=== PATIENT | female | born 1995 | race African-American/Black ===

== ENCOUNTER 2017-07-18 11:01 | Emergency (ER) | payer SELFPAY ==
[~2017-07-18] VITALS: Ht 167.6 cm; Wt 68.0 kg
[~2017-07-18 11:01] MED LIST: DICL75 PO
[2017-07-18 11:07] VITALS: BP 110/59; TEMP 98.5; O2SAT 100
--- NOTE | 2017-07-18 12:09 | PD ---
HPI Chief Complaint: Related Problem Time Seen by Provider: 11:57 Travel History International Travel<30 days: No Contact w/Intl Traveler<30days: No Traveled to known affect area: No History of Present Illness HPI The patient is a 21-year-old [place] female who presents to the emergency department for possible . The patient denies previous , states her last menstrual cycle ended on June 26, 2017. The patient had a home test that was positive, presents emergency department for evaluation of possible . She does complain of some lower abdominal cramping intermittently for the last week, but denies any acute pain upon arrival. She denies any vaginal discharge or vaginal bleeding. She denies any dysuria, frequency, or urgency. She does complain of mild intermittent nausea without any vomiting. Symptoms are mild, possibly secondary to . She is sexually active. She is not currently on control. PFSH Past Medical History Developmental Delay: No Diminished Hearing: No Immunizations Current: Yes ?: LMP: UNKNOWN Menopausal: No : 0 Para: 0 Miscarriage: 0 : 0 Past Surgical History Abdominal Surgery: Yes (HERNIA REPAIR) Other Surgery: Yes (HERNIA) Social History Alcohol Use: No Tobacco Use: No Substance Use: No Allergies-Medications (Allergen,Severity, Reaction): Coded Allergies: No Known Allergies (Unverified Adverse Reaction, Unknown, 07/18/17) Reported Meds & Prescriptions Reported Meds & Active Scripts Active No Active Prescriptions or Reported Medications Review of Systems Except as stated in HPI: all other systems reviewed are Neg Cardiovascular: No: Chest Pain or Discomfort Respiratory: No: Shortness of Breath Gastrointestinal: Positive: Nausea, No: Abdominal Pain Genitourinary: Positive: Pelvic Pain (intermittent cramping), No: Urgency, Frequency, Dysuria, Hematuria, Flank Pain, Discharge, Vaginal Bleeding Physical Exam Narrative GENERAL: Awake, alert, pleasant 21-year-old female who appears her stated age and is in no acute respiratory distress. SKIN: Focused skin assessment warm/dry. HEAD: Atraumatic. Normocephalic. EYES: No injection or drainage. ENT: No nasal bleeding or discharge. Mucous membranes pink and moist. NECK: Trachea midline. No JVD. CARDIOVASCULAR: Regular rate and rhythm. No murmur appreciated. RESPIRATORY: No accessory muscle use. Clear to auscultation. Breath sounds equal bilaterally. GASTROINTESTINAL: Abdomen soft, non-tender, nondistended. No suprapubic tenderness. No guarding or rigidity. Back: No CVA tenderness. MUSCULOSKELETAL: No obvious deformities. No clubbing. No cyanosis. No edema. NEUROLOGICAL: Awake and alert. No obvious cranial nerve deficits. Motor grossly within normal limits. Normal speech. PSYCHIATRIC: Appropriate mood and affect; insight and judgment normal. Data Data Last Documented VS Vital Signs Date Time Temp Pulse Resp B/P (MAP) Pulse Ox O2 Delivery O2 Flow Rate FiO2 07/18/17 11:07 98.5 73 16 110/59 (76) 100 Orders Orders Complete Blood Count With Diff (07/18/17 11:16) Beta Hcg (Quant/Titer) (07/18/17 11:16) Ed Urine Pregnancytest Poc (07/18/17 11:16) Urinalysis - C+S If Indicated (07/18/17 11:16) Ed Poc Ultrasound (07/18/17 ) Labs Laboratory Tests Test 07/18/17 11:42 07/18/17 11:50 White Blood Count 3.8 TH/MM3 Red Blood Count 3.49 MIL/MM3 Hemoglobin 11.3 GM/DL Hematocrit 32.9 % Mean Corpuscular Volume 94.3 FL Mean Corpuscular Hemoglobin 32.5 PG Mean Corpuscular Hemoglobin Concent 34.4 % Red Cell Distribution Width 13.4 % Platelet Count 207 TH/MM3 Mean Platelet Volume 8.3 FL Neutrophils (%) (Auto) 35.2 % Lymphocytes (%) (Auto) 51.4 % Monocytes (%) (Auto) 12.4 % Eosinophils (%) (Auto) 0.8 % Basophils (%) (Auto) 0.2 % Neutrophils # (Auto) 1.4 TH/MM3 Lymphocytes # (Auto) 2.0 TH/MM3 Monocytes # (Auto) 0.5 TH/MM3 Eosinophils # (Auto) 0.0 TH/MM3 Basophils # (Auto) 0.0 TH/MM3 CBC Comment DIFF FINAL Differential Comment Human Chorionic Gonadotropin, Quant 35693 MIU/ML Urine Color YELLOW Urine Turbidity CLEAR Urine pH 7.5 Urine Specific [place] 1.018 Urine Protein NEG mg/dL Urine Glucose (UA) NEG mg/dL Urine Ketones NEG mg/dL Urine Occult Blood NEG Urine Nitrite NEG Urine Bilirubin NEG Urine Urobilinogen LESS THAN 2.0 MG/DL Urine Leukocyte Esterase NEG Urine RBC LESS THAN 1 /hpf Urine WBC 1 /hpf Urine Squamous Epithelial Cells 3 /hpf Urine Mucus FEW /lpf Microscopic Urinalysis Comment CULT NOT INDICATED MDM Medical Decision Making Medical Screen Exam Complete: Yes Emergency Medical Condition: Yes Medical Record Reviewed: Yes Interpretation(s) Laboratory Tests Test 07/18/17 11:42 07/18/17 11:50 White Blood Count 3.8 TH/MM3 Red Blood Count 3.49 MIL/MM3 Hemoglobin 11.3 GM/DL Hematocrit 32.9 % Mean Corpuscular Volume 94.3 FL Mean Corpuscular Hemoglobin 32.5 PG Mean Corpuscular Hemoglobin Concent 34.4 % Red Cell Distribution Width 13.4 % Platelet Count 207 TH/MM3 Mean Platelet Volume 8.3 FL Neutrophils (%) (Auto) 35.2 % Lymphocytes (%) (Auto) 51.4 % Monocytes (%) (Auto) 12.4 % Eosinophils (%) (Auto) 0.8 % Basophils (%) (Auto) 0.2 % Neutrophils # (Auto) 1.4 TH/MM3 Lymphocytes # (Auto) 2.0 TH/MM3 Monocytes # (Auto) 0.5 TH/MM3 Eosinophils # (Auto) 0.0 TH/MM3 Basophils # (Auto) 0.0 TH/MM3 CBC Comment DIFF FINAL Differential Comment Human Chorionic Gonadotropin, Quant 10549 MIU/ML Urine Color YELLOW Urine Turbidity CLEAR Urine pH 7.5 Urine Specific [place] 1.018 Urine Protein NEG mg/dL Urine Glucose (UA) NEG mg/dL Urine Ketones NEG mg/dL Urine Occult Blood NEG Urine Nitrite NEG Urine Bilirubin NEG Urine Urobilinogen LESS THAN 2.0 MG/DL Urine Leukocyte Esterase NEG Urine RBC LESS THAN 1 /hpf Urine WBC 1 /hpf Urine Squamous Epithelial Cells 3 /hpf Urine Mucus FEW /lpf Microscopic Urinalysis Comment CULT NOT INDICATED Differential Diagnosis Differential diagnosis includes , threatened AB, incomplete AB, UTI, ectopic . Narrative Course Patient was initially evaluated in triage, had a bedside UA test that was positive, therefore, beta-hCG was sent to lab. The patient denies any current pain or vaginal bleeding, doubt ectopic or threatened AB. Quantitative beta hCG was sent to lab by triage. Bedside ultrasound was performed which reveals what appears to be an IUP with gestational sac. The patient is advised to take a vitamin daily, return if there is any abdominal pain, bleeding, significant nausea/vomiting, or syncope. She is advised to follow-up with an biological technician. Procedures Procedure Narrative Bedside ultrasound was performed using a curvilinear probe. There appears to be an IUP with gestational sac. No obvious free fluid. The patient tolerated the procedure without difficulty. There was no obvious complications. Diagnosis Primary Impression: Qualified Codes: Z34.90 - Encounter for supervision of normal , unspecified, unspecified trimester Referrals: [facility] as needed Patient Instructions: General Instructions Additional Instructions: Take a vitamin daily. Follow-up with an biological technician. Plenty fluids to stay hydrated. Return for vaginal bleeding, abdominal pain, or persistent nausea/vomiting. Med/Other Pt SpecificInfo: No Change to Meds Scripts No Active Prescriptions or Reported Meds Disposition: 01 DISCHARGE HOME Condition: Stable Tejas Salazar MD Jul 18, 2017 12:09
[2017-07-18 12:24] LABS: AUTOMATED NEUTROPHIL # 1.4 TH/MM3 (1.8-7.7); BASOPHIL % 0.2 % (0.0-2.0); EOSINOPHIL % 0.8 % (0.0-4.0); HEMATOCRIT 32.9 % (35.0-46.0); HEMOGLOBIN 11.3 GM/DL (11.6-15.3); LYMPH % 51.4 % (9.0-44.0); MEAN CELL VOLUME 94.3 FL (80.0-100.0); MEAN CORPUSCULAR HEMOGLOBIN 32.5 PG (27.0-34.0); MEAN CORPUSCULAR HGB CONC 34.4 % (32.0-36.0); MEAN PLATELET VOLUME 8.3 FL (7.0-11.0); MONO % 12.4 % (0.0-8.0); MONOCYTE # 0.5 TH/MM3 (0-0.9); NEUT % 35.2 % (16.0-70.0); PLATELET COUNT 207 TH/MM3 (150-450); RED BLOOD COUNT 3.49 MIL/MM3 (4.00-5.30); RED CELL DISTRIBUTION WIDTH 13.4 % (11.6-17.2); WHITE BLOOD COUNT 3.8 TH/MM3 (4.0-11.0)
[2017-07-18 12:33] LABS: BILIRUBIN, URINE NEG (NEG); BLOOD, URINE NEG (NEG); GLUCOSE,URINE NEG (NEG); KETONE, URINE NEG (NEG); MUCUS URINE FEW /lpf (OCC); NITRITE,URINE NEG (NEG); PH, URINE 7.5 (5.0-8.5); SQUAMOUS EPITHELIAL CELL URINE 3 /hpf (0-5); URINE COLOR YELLOW (YELLW/STRAW); URINE LEUKOCYTE ESTERASE NEG (NEG)
== END 2017-07-18 14:08 | disposition home or self-care (01) ==
LOC: NEPD 11:01
DX: O26.891 Other specified pregnancy related conditions, first trimester (principal); R10.2 Pelvic and perineal pain; Z3A.00 Weeks of gestation of pregnancy not specified
CPT/HCPCS: 81001; 84702; 84703; 85025; 99283

== ENCOUNTER 2017-08-28 09:19 | Emergency (ER) | payer MEDICAID, OTHER ==
[2017-08-28 09:34] VITALS: BP 113/55; PULSE 68; RESP 14; TEMP 98.6; O2SAT 100
--- NOTE | 2017-08-28 10:21 | PD ---
HPI Chief Complaint: Related Problem Time Seen by Provider: 10:18 Travel History International Travel<30 days: No Contact w/Intl Traveler<30days: No Traveled to known affect area: No History of Present Illness HPI according to patient she is not sure she is . Last menstrual period was back in May sometime ago. Patient comes in complaining of some nausea, but without abdominal pain. Patient denies having any actual vomiting or diarrhea but positive for nausea. Patient also denies any alleviating or aggravating factors. Patient also denies any associated factors such as fever, headache, neck pain, photophobia, chest pain, back pain, flank pain,. patient also denies any vag bleeding or spotting currently. No known drug allergy Patient denies any significant past medical versus surgical history PFSH Past Medical History Developmental Delay: No Diminished Hearing: No Immunizations Current: Yes Menopausal: No : 0 Para: 0 Miscarriage: 0 : 0 Past Surgical History Abdominal Surgery: Yes (HERNIA REPAIR) Other Surgery: Yes (HERNIA) Social History Alcohol Use: No Tobacco Use: No Substance Use: No Allergies-Medications (Allergen,Severity, Reaction): Coded Allergies: No Known Allergies (Unverified Adverse Reaction, Unknown, 07/18/17) Reported Meds & Prescriptions Reported Meds & Active Scripts Active No Active Prescriptions or Reported Medications Review of Systems General / Constitutional: No: Fever Eyes: No: Visual changes HENT: No: Headaches Cardiovascular: No: Chest Pain or Discomfort Respiratory: No: Shortness of Breath Gastrointestinal: Positive: Nausea Genitourinary: No: Dysuria Musculoskeletal: No: Pain Skin: No Rash Neurologic: No: Weakness Psychiatric: No: Depression Endocrine: No: Polydipsia Hematologic/Lymphatic: No: Easy Bruising Physical Exam Narrative GENERAL: SKIN: Warm and dry. HEAD: Atraumatic. Normocephalic. EYES: Pupils equal and round. No scleral icterus. No injection or drainage. ENT: No nasal bleeding or discharge. Mucous membranes pink and moist. NECK: Trachea midline. No JVD. CARDIOVASCULAR: Regular rate and rhythm. RESPIRATORY: No accessory muscle use. Clear to auscultation. Breath sounds equal bilaterally. GASTROINTESTINAL: Abdomen soft, non-tender, nondistended. MUSCULOSKELETAL: Extremities without clubbing, cyanosis, or edema. No obvious deformities. NEUROLOGICAL: Awake and alert. No obvious cranial nerve deficits. Motor grossly within normal limits. Five out of 5 muscle strength in the arms and legs. Normal speech. PSYCHIATRIC: Appropriate mood and affect; insight and judgment normal. Data Data Last Documented VS Vital Signs Date Time Temp Pulse Resp B/P (MAP) Pulse Ox O2 Delivery O2 Flow Rate FiO2 08/28/17 09:34 98.6 68 14 113/55 (74) 100 Orders Orders Urinalysis - C+S If Indicated (08/28/17 09:36) Ed Urine Pregnancytest Poc (08/28/17 09:36) Ed Discharge Order (08/28/17 11:18) Labs Laboratory Tests Test 08/28/17 09:45 Urine Color YELLOW Urine Turbidity CLOUDY Urine pH 7.5 Urine Specific [place] 1.019 Urine Protein TRACE mg/dL Urine Glucose (UA) NEG mg/dL Urine Ketones NEG mg/dL Urine Occult Blood NEG Urine Nitrite NEG Urine Bilirubin NEG Urine Urobilinogen LESS THAN 2.0 MG/DL Urine Leukocyte Esterase MOD Urine RBC 1 /hpf Urine WBC 5 /hpf Urine Squamous Epithelial Cells 35 /hpf Urine Amorphous Sediment MANY Urine Bacteria RARE /hpf Microscopic Urinalysis Comment CULT NOT INDICATED MDM Medical Decision Making Medical Screen Exam Complete: Yes Emergency Medical Condition: Yes Medical Record Reviewed: Yes Differential Diagnosis UTI versus sterile pyuria versus early versus non- Narrative Course No evidence of sterile pyuria or UTI on UA Diagnosis Primary Impression: Referrals: [facility] you were today and are advised to establish follow up care Patient Instructions: First Trimester (ED), General Instructions Scripts No Active Prescriptions or Reported Meds Disposition: 01 DISCHARGE HOME Condition: Stable Ayaz Bbo MD Aug 28, 2017 10:21
[2017-08-28 10:45] LABS: AMORPHOUS SEDIMENT, URINE MANY; BACTERIA, URINE RARE /hpf; BILIRUBIN, URINE NEG (NEG); BLOOD, URINE NEG (NEG); GLUCOSE,URINE NEG (NEG); KETONE, URINE NEG (NEG); NITRITE,URINE NEG (NEG); PH, URINE 7.5 (5.0-8.5); SQUAMOUS EPITHELIAL CELL URINE 35 /hpf (0-5); URINE COLOR YELLOW (YELLW/STRAW); URINE LEUKOCYTE ESTERASE MOD (NEG)
== END 2017-08-28 11:20 | disposition left against medical advice (07) ==
LOC: NEPD 09:19
DX: O26.899 Other specified pregnancy related conditions, unspecified trimester (principal); R11.0 Nausea
CPT/HCPCS: 81001; 84703; 99283